=== PATIENT | male | born 1985 | race Caucasian/White ===

== ENCOUNTER 2020-07-09 22:42 | Emergency (ER) | payer OTHER ==
[~2020-07-09] VITALS: Ht 188 cm; Wt 90.7 kg
[2020-07-09] MEDS ORDERED: Doxycycline150 MG PO (23:54)
== END 2020-07-10 00:56 | disposition home or self-care (01) ==
LOC: ER 22:42
DX: S92.352A Displaced fracture of fifth metatarsal bone, left foot, initial encounter for closed fracture (principal); F17.210 Nicotine dependence, cigarettes, uncomplicated; V00.131A Fall from skateboard, initial encounter
CPT/HCPCS: 29515; 73630; 99283-25